=== PATIENT | female | born 1930 | race Caucasian/White ===

== ENCOUNTER 2017-01-29 19:20 | Observation (INO) | payer MEDICARE, OTHER, BC ==
[2017-01-29 20:07] LABS: Hematocrit 39.8 % (37.0-47.0); Hemoglobin 13.3 gm/dL (12.5-16.0); Mean Cell Volume 90.5 fl (78-100); Mean Corpuscular Hemoglobin 30.2 pg (27-31); Mean Corpuscular Hgb Conc 33.4 g/dl (32-36); Mean Platelet Volume 9.7 fl (6.0-9.5); Neutrophil # 3.5 K/mm3 (1.3-6.0); Neutrophil % 51.5 % (42-75.0); Platelet Count 187 K/mm3 (150-450); Red Cell Distribution Width 14.1 % (11.5-14.0); White Blood Count 6.7 K/mm3 (4.0-10.5)
--- NOTE | 2017-01-29 20:15 | ERNOTE ---
<Courtney Mahmood - Last Filed: 01/29/17 20:03> Dyspnea - General Presenting Symptoms: shortness of breath Time Seen by Provider: 01/29/17 19:46 Source: patient Exam Limitations: no limitations - Immun/Allergies/Home Medications Immunizations: IMMUNIZATION HX Immunizations Up to Date Yes History of Influenza Vaccine No Hx Pneumococcal Vaccination No Allergies/Adverse Reactions: Allergies imipramine Allergy (Verified 01/29/17 19:26) metformin Allergy (Verified 01/29/17 19:26) simvastatin [From Zocor] Allergy (Verified 01/29/17 19:26) Home Medications: HOME MEDICATIONS Albuterol Sulfate [Albuterol Sulfate 2.5 MG/0.5ML] 1 vial IH Q4H #30 vial [Last Taken Unknown] Ascorbic Acid [Vitamin C] 500 mg PO DAILY 08/18/15 [Last Taken Unknown] B2/Vits A,C,E/Lut/Zeaxanth/Min [Icaps Tablet] 1 each PO DAILY 08/18/15 [Last Taken Unknown] Carvedilol [Coreg] 3.125 mg PO BID 08/18/15 [Last Taken Unknown] Chlorthalidone [Hygroton] 12.5 mg PO DAILY 08/18/15 [Last Taken Unknown] Cholecalciferol [Vitamin D] 1,000 unit PO DAILY 08/18/15 [Last Taken Unknown] Cyanocobalamin (Vitamin B-12) [Vitamin B12] 500 mcg PO DAILY 08/18/15 [Last Taken Unknown] Diphenoxylate HCl/Atrop Sulf [Lomotil] 2.5 mg PO QID PRN #40 tab 08/18/15 [Last Taken Unknown] Doxycycline Hyclate [Vibratab] 100 mg PO BID #20 tab 08/18/15 [Last Taken Unknown] FLUoxetine HCL [Prozac] 40 mg PO DAILY 08/18/15 [Last Taken Unknown] Fish Oil/Borage/Flax/Om3,6,9#1 [[place] 3-6-9 1,200 mg Softgel] 1,200 mg PO BID [Last Taken Unknown] Insulin Glargine,Hum.rec.anlog [Lantus] 28 units SC DAILY 08/18/15 [Last Taken Unknown] Lisinopril [Prinivil] 20 mg PO HS 08/18/15 [Last Taken Unknown] Lutein Extract/Zeaxanthin Ext [Lutein 15 mg Softgel] 1 each PO DAILY 08/18/15 [ Last Taken Unknown] Ondansetron [Zofran Odt] 4 mg PO Q6H PRN #20 tab 08/18/15 [Last Taken Unknown] Oxybutynin Chloride [Ditropan] 5 mg PO BID 08/18/15 [Last Taken Unknown] Pravastatin Sodium [Pravachol] 80 mg PO DAILY 08/18/15 [Last Taken Unknown] Promethazine HCl/Codeine [Phenergan W/Codeine Syrup] 5 ml PO Q4H PRN #180 ml [Last Taken Unknown] amLODIPine BESYLATE [Norvasc] 10 mg PO DAILY 08/18/15 [Last Taken Unknown] - History of Present Illness Narrative: Patient had just finished a dinner of steak and hashbrowns at a restaurant when she started to feel flushed, short of breath and had chest pressure. the symptoms lasted about an hour and had resolved on arrival in the ER Date (Duration): 01/29/17 Time (Timing): 17:45 Treatment LEDGER CLERK: none Initiating event: Denies: upper resp illness, out of meds, sports/exercise, aspiration/choking Frequency of episodes: Denies: no prior episodes Modifying Factors (Worsens): Reports: nothing Associated Symptoms-Dyspnea: Reports: chest pain/discomfort. Denies: fever/ chills, cough, wheezing, dizziness, lightheadedness, weakness Prior Treatment: Denies: recently seen, currently on antibiotics, previous episodes Review of Systems - Review of Systems Constitutional: Absent: recent illness, fever, fussy EYE: Absent: vision changes ENT: Absent: nose congestion, sore throat Respiratory: Absent: shortness of breath Cardiology: Present: See HPI. Absent: palpitations, syncope Gastrointestinal/Abdominal: Absent: nausea, vomiting, abdominal pain Genitourinary: Present: no symptoms reported Musculoskeletal: Absent: back pain, neck pain Neurological: Absent: headache, weakness, numbness - Patient's Past Medical History Patient History - Medical: Diabetes Type 2 Insulin Dependent Patient History - Cardiac/Respiratory: COPD Patient History - Cancer: No Hx of Cancer Patient History - Surgical Procedures: Cholecystectomy, Hysterectomy Patient History - Other: None - Family History Father Family History - Medical: , Diabetes Type 2 Mother Family History - Medical: - Social History Living Situations: home Abuse History: No History of abuse Psych History: No pertinent hx Smoking Status: Former smoker Alcohol Use: none Drug Use: none - Immunizations Immunizations Up to Date: Yes Hx Pneumococcal Vaccination: No History of Influenza Vaccine: No Physical Exam - Physical Exam General Appearance: Present: wd/wn, alert Eye Exam: Normal inspection: bilateral Ears, Nose, Throat: Present: normal pharynx Respiratory: Present: no respiratory distress, no accessory muscle use, lungs clear, decreased breath sounds Cardiovascular/Chest: Present: regular rate, rhythm, no murmur Gastrointestinal/Abdominal: Present: normal bowel sounds, nontender, nondistended, soft Extremity Exam: Present: no edema Neurological Exam: Present: alert, oriented, normal mood/affect Skin Exam: Present: normal color, warm/dry ED Progress - Vital Signs Patient's Vital Signs:: I have reviewed the patient's vital signs. Vital Signs: Vital Signs 01/29/17 19:27 Temperature 37.6 C H Pulse Rate 108 H Respiratory 20 Rate Blood Pressure 196/94 O2 Sat by Pulse 96 Oximetry - EKG EKG: NSR - sinustachycardia, nonspecific ST T wave changes, unchanged from EKG read: Interp. by me - Progress/Reassessment Chief Complaint: Dyspnea - Transfer of Care Physician Sign Out: Courtney Mahmood Receiving Physician: Kiersten Kunz Pending Results: Labs Expected Disposition: Admit Departure Clinical Impression: Chest pain Qualifiers: Chest pain type: unspecified Qualified Code(s): R07.9 - Chest pain, unspecified - Departure Disposition: [facility] Condition: Stable Referrals: Monica Long MD [Primary Care Provider] - <Kiersten Kunz - Last Filed: 01/29/17 21:03> Dyspnea - Date Date of Service: 01/29/17 - Immun/Allergies/Home Medications Immunizations: IMMUNIZATION HX Immunizations Up to Date Yes History of Influenza Vaccine No Hx Pneumococcal Vaccination No ED Progress - Results and Orders Patient's Lab Results:: I have reviewed the patient's lab results. - Vital Signs Vital Signs: Vital Signs 01/29/17 01/29/17 01/29/17 19:27 20:07 20:50 Temperature 37.6 C H Pulse Rate 108 H 91 84 Respiratory 20 14 Rate Blood Pressure 196/94 155/70 O2 Sat by Pulse 96 94 Oximetry Plan - Plan Plan: This examiner started taking care of the patient after the patient had already been seen in evaluated examined and diagnosed with a previous provider. The story is of this patient went out to eat at about 1800 she started having substernal chest pains that radiated up into her substernal region. Upon arrival patient's EKG did not reveal any ST or T wave changes there is no STEMI. When I saw the patient the patient's chest pain was down from a 9 out of 10 to a 5 out of 10. At this time this examiner elected to give her 2 mg of morphine and an aspirin 324 mg chew and swallow. A set of enzymes are negative on this patient on interviewing her she appears comfortable however she still states she has a 5 out of 10 chest pressure in the substernal region. I believe this patient needs to be admitted to the MedSurg unit for observation and a second set of troponin and enzymes.
[2017-01-29 20:20] LABS: Prothrombin Time (Patient) 9.8 Seconds (9.0-11.0)
[2017-01-29 20:21] LABS: INR 0.98 INR (0.90-1.10); Partial Thrombolplastin Time 24.3 Seconds (24-32)
[2017-01-29 20:29] LABS: ALT 31 U/L (19-67); AST 23 U/L (0-48); Alkaline Phosphatase * 125 U/L (50-170); Anion Gap 11.3 mmol/L (6.8-13.8); BUN/Creatinine Ratio 15.5 (9.0-21.6); Bilirubin, Total 0.3 mg/dL (0.0-1.1); Blood Urea Nitrogen 18 mg/dL (3-23); Ca. Corrected For Albumin 10.6 mg/dL (8.4-10.2); Calcium * 10.9 mg/dL (7.9-10.9); Carbon Dioxide 30.7 mmol/L (24-32.6); Chloride 104 mmol/L (97-106); Glucose * 193 mg/dL (70-110); Sodium 142 mmol/L (132-142); Total Protein 7.4 gm/dL (6.2-8.2); Troponin I Less than 0.017 ng/ml (0.00-0.10)
[2017-01-29] MEDS ORDERED: MORPHINE SULFATE 2 MG/ML DISP.SYRIN IV ONE (20:54)
[2017-01-29] MEDS ORDERED: ASPIRIN 81 MG TAB.CHEW ONE ×2 (20:54→20:57)
[2017-01-29] MEDS ORDERED: ASPIRIN 81 MG TAB.CHEW PO ONE (20:54)
[2017-01-29] MEDS ORDERED: MORPHINE SULFATE 2 MG/ML DISP.SYRIN ONE (20:56)
--- NOTE | 2017-01-29 21:42 | HP ---
Chief Complaint - Chief Complaint Date of Service: 01/29/17 Time of Service: 20:30 Chief Complaint: "Chest pressure". Source of HPI- Pt; reliable, ERP report. History of Present Illness: Mrs. Welch is a 86-yr-old [place] pt with a PMH of: CKD, DM II, GERD, HTN, HLD, Macular degeneration, Osteoarthritis & RIZWANA.Pt states that she was out with her family at a local diner and after they were done eating and getting ready to leave, she suddenly developed pressure like pain on her chest. This was accompanied by feeling of Hotness and SOB. Her family brought her to the ED by personal car. She states that by the time she arrived here, the pain/pressure like discomfort was gone. She denies the associated symptoms of pain radiation to the neck, jaw or arm an no palpitations. There was no feeling of numbness on her hands & no difficulty of speech. At the ED, she received 3 Aspirins and morphine. During physical exam, she is completely pain free. There is no reproduction of pain on chest wall palpation. The first EKG and troponin were negative of ACS/[place]. She will be admitted under observation status for remote telemetry monitoring and repeat EKG & Troponin. - Patient's Past Medical History Patient History - Medical: Diabetes Type 2 Insulin Dependent, GERD, Osteoarthritis, Other - Macular degeneration. Patient History - Cardiac/Respiratory: COPD, Hypertension, Hyperlipidemia Patient History - Cancer: No Hx of Cancer Patient History - Surgical Procedures: Cholecystectomy, Hysterectomy Patient History - Other: None - Family History Father Family History - Medical: , Diabetes Type 2 Mother Family History - Medical: - Social History Living Situations: home Abuse History: No History of abuse Psych History: No pertinent hx Smoking Status: Former smoker Alcohol Use: none Drug Use: none - Immunizations Immunizations Up to Date: Yes Hx Pneumococcal Vaccination: No History of Influenza Vaccine: No Review Of Systems (GEN) - Review of Systems Generalized/Overall Review: Present: Diaphoresis. Absent: Weakness, Chills, Fever, Malaise EENTM: Absent: Eye Pain, Blurred Vision, Double Vision Respiratory: Absent: Cough, Shortness of Breath, Orthopnea Cardiac: Present: Other - chest pressure. Absent: Palpitations, Syncope Abdominal: Absent: Nausea, Vomiting, Hematemesis, Constipation Genitourinary: Absent: Burning, Itching, Urgency, Incontinent Musculoskeletal: Absent: Joint Pain, Back Pain, Joint Swelling Neurological: Absent: Headache, Anxiety, Depressed Skin: Absent: Dryness, Lesions, Lumps, Bruising Endocrine: Absent: Intolerance to Cold, Intolerance to Heat, Increased Thirst Misc: All systems neg except as marked Allergies/Adverse Reactions: Allergies Allergy/AdvReac Type Severity Reaction Status Date / Time imipramine Allergy Verified 01/29/17 19:26 metformin Allergy Verified 01/29/17 19:26 simvastatin [From Zocor] Allergy Verified 01/29/17 19:26 Home Medications: HOME MEDICATIONS Albuterol Sulfate [Albuterol Sulfate 2.5 MG/0.5ML] 1 vial IH Q4H #30 vial [Last Taken Unknown] Ascorbic Acid [Vitamin C] 500 mg PO DAILY 08/18/15 [Last Taken Unknown] B2/Vits A,C,E/Lut/Zeaxanth/Min [Icaps Tablet] 1 each PO DAILY 08/18/15 [Last Taken Unknown] Carvedilol [Coreg] 3.125 mg PO BID 08/18/15 [Last Taken Unknown] Chlorthalidone [Hygroton] 12.5 mg PO DAILY 08/18/15 [Last Taken Unknown] Cholecalciferol [Vitamin D] 1,000 unit PO DAILY 08/18/15 [Last Taken Unknown] Cyanocobalamin (Vitamin B-12) [Vitamin B12] 500 mcg PO DAILY 08/18/15 [Last Taken Unknown] Diphenoxylate HCl/Atrop Sulf [Lomotil] 2.5 mg PO QID PRN #40 tab 08/18/15 [Last Taken Unknown] Doxycycline Hyclate [Vibratab] 100 mg PO BID #20 tab 08/18/15 [Last Taken Unknown] FLUoxetine HCL [Prozac] 40 mg PO DAILY 08/18/15 [Last Taken Unknown] Fish Oil/Borage/Flax/Om3,6,9#1 [[place] 3-6-9 1,200 mg Softgel] 1,200 mg PO BID [Last Taken Unknown] Insulin Glargine,Hum.rec.anlog [Lantus] 28 units SC DAILY 08/18/15 [Last Taken Unknown] Lisinopril [Prinivil] 20 mg PO HS 08/18/15 [Last Taken Unknown] Lutein Extract/Zeaxanthin Ext [Lutein 15 mg Softgel] 1 each PO DAILY 08/18/15 [ Last Taken Unknown] Ondansetron [Zofran Odt] 4 mg PO Q6H PRN #20 tab 08/18/15 [Last Taken Unknown] Oxybutynin Chloride [Ditropan] 5 mg PO BID 08/18/15 [Last Taken Unknown] Pravastatin Sodium [Pravachol] 80 mg PO DAILY 08/18/15 [Last Taken Unknown] Promethazine HCl/Codeine [Phenergan W/Codeine Syrup] 5 ml PO Q4H PRN #180 ml [Last Taken Unknown] amLODIPine BESYLATE [Norvasc] 10 mg PO DAILY 08/18/15 [Last Taken Unknown] Exam - Exam Vital Signs: Vital Signs - Last Taken Temp 37.3 C 01/29/17 21:15 Pulse 84 01/29/17 21:15 Resp 13 01/29/17 21:15 BP 166/82 01/29/17 21:15 Pulse Ox 94 01/29/17 21:15 Constitutional: Present: Alert, Oriented x3, Cooperative, No distress ENT Exam: Present: normal ENT inspection, hearing grossly normal Eye Exam: bilateral eye: normal inspection, PERRL Neck: Present: non-tender, full range of motion, supple Back Exam: Present: normal inspection, no CVA tenderness Respiratory: Present: lungs clear, No rales, No wheezing Cardiovascular/Chest: Present: normal peripheral pulses, regular rate, rhythm, no chest tenderness, no edema, no murmur Abdomen: Present: Normal bowel sounds, soft, nontender /Rectal: Present: Exam deferred Extremity: Present: normal range of motion, non-tender, normal inspection Skin Exam: Present: warm/dry, no cyanosis Lymphatic: Present: no adenopathy Neurologic: Present: alert, normal mood/affect, oriented x 3 Appearance: Present: appropriate appearance, appropriate insight Eye contact: Present: cooperative, good eye contact, normal speech Thoughts: Present: normal thought pattern, no apparent hallucination Diagnostic Studies: Laboratory Results WBC 6.7 K/mm3 (4.0-10.5) 01/29/17 19:50 RBC 4.40 M/mm3 (4.2-5.4) 01/29/17 19:50 Hgb 13.3 gm/dL (12.5-16.0) 01/29/17 19:50 Hct 39.8 % (37.0-47.0) 01/29/17 19:50 MCV 90.5 fl (78-100) 01/29/17 19:50 MCH 30.2 pg (27-31) 01/29/17 19:50 MCHC 33.4 g/dl (32-36) 01/29/17 19:50 RDW 14.1 % (11.5-14.0) H 01/29/17 19:50 Plt Count 187 K/mm3 (150-450) 01/29/17 19:50 MPV 9.7 fl (6.0-9.5) H 01/29/17 19:50 Immature Gran % (Auto) 1.30 % (0.001-0.429) H 01/29/17 19:50 Immature Gran # (Auto) 0.09 K/mm3 (0.000-0.0310) H 01/29/17 19:50 Neutrophils % 51.5 % (42-75.0) 01/29/17 19:50 Lymphocytes % 36.1 % (20-51) 01/29/17 19:50 Monocytes % 8.6 % (0.0-9) 01/29/17 19:50 Eosinophils % 2.1 % (0.0-3.0) 01/29/17 19:50 Basophils % 0.4 % (0.0-1.0) 01/29/17 19:50 Nucleated RBC % 0.0 k/mm3 (0-1) 01/29/17 19:50 Neutrophils # 3.5 K/mm3 (1.3-6.0) 01/29/17 19:50 Lymphocytes # 2.4 k/mm3 (1.5-3.5) 01/29/17 19:50 Monocytes # 0.6 k/mm3 (0.0-1.0) 01/29/17 19:50 Eosinophils # 0.1 k/mm3 (0.0-0.7) 01/29/17 19:50 Absolute Basophils 0.0 k/mm3 (0.0-0.1) 01/29/17 19:50 PT 9.8 Seconds (9.0-11.0) 01/29/17 19:50 INR (Anticoag Therapy) 0.98 INR (0.90-1.10) 01/29/17 19:50 PTT ([place]) 24.3 Seconds (24-32) 01/29/17 19:50 Sodium 142 mmol/L (132-142) 01/29/17 19:50 Plasma Sodium 143 mmol/L (130-142) H 01/29/17 19:50 Potassium 4.0 mmol/L (3.4-4.6) 01/29/17 19:50 Chloride 104 mmol/L (97-106) 01/29/17 19:50 Carbon Dioxide 30.7 mmol/L (24-32.6) 01/29/17 19:50 Anion Gap 11.3 mmol/L (6.8-13.8) 01/29/17 19:50 BUN 18 mg/dL (3-23) 01/29/17 19:50 Creatinine 1.16 mg/dL (0.4-1.4) 01/29/17 19:50 Est GFR (Non-Af Amer) 47 mL/min (60-130) L 01/29/17 19:50 BUN/Creatinine Ratio 15.5 (9.0-21.6) 01/29/17 19:50 Random Glucose 193 mg/dL (70-110) H 01/29/17 19:50 Calcium 10.9 mg/dL (7.9-10.9) 01/29/17 19:50 Calcium Adj for Albumin 10.6 mg/dL (8.4-10.2) H 01/29/17 19:50 Total Bilirubin 0.3 mg/dL (0.0-1.1) 01/29/17 19:50 AST 23 U/L (0-48) 01/29/17 19:50 ALT 31 U/L (19-67) 01/29/17 19:50 Alkaline Phosphatase 125 U/L (50-170) 01/29/17 19:50 Troponin I Less than 0.017 ng/ml (0.00-0.10) 01/29/17 19:50 B-Natriuretic Peptide 186 pg/mL (5-550) 01/29/17 19:50 Total Protein 7.4 gm/dL (6.2-8.2) 01/29/17 19:50 Albumin 4.0 gm/dl (3.4-5.0) 01/29/17 19:50 Assessment/Plan - Assessment/Plan (1) Chest pain, rule out acute myocardial infarction Assessment: The first Troponin was negative and EKG did not have any ST-T wave changes. Will repeat serial Troponins and EKG and should they all be negative, will suspect that this episode was GI related. She has history of GERD and omeprazole 20mg daily. Consider adjusting Omeprazole to [address] her on continuous cardiac monitoring and keep NPO. Plan to DC tomorrow if no acute events overnight. Problem: Acute (2) COPD (chronic obstructive pulmonary disease) Problem: Chronic (3) Diabetes mellitus Problem: Chronic Qualifiers: Diabetes mellitus type: type 2 (4) GERD (gastroesophageal reflux disease) Problem: Chronic (5) Osteoarthritis Problem: Chronic (6) Obstructive sleep apnea Problem: Chronic
[2017-01-30] MEDS ORDERED: ACETAMINOPHEN 650 MG TABLET PO PRN (02:51)
[2017-01-30] MEDS: ALBUTEROL SULFATE 2.5 MG/0.5 ML VIAL.NEB IH SCH ×3 (03:28→11:17)
--- NOTE | 2017-01-30 05:15 | DS ---
(1) Chest pain, rule out acute myocardial infarction Problem: Acute (2) COPD (chronic obstructive pulmonary disease) Problem: Chronic (3) Diabetes mellitus Problem: Chronic Qualifiers: Diabetes mellitus type: type 2 (4) GERD (gastroesophageal reflux disease) Problem: Chronic (5) Osteoarthritis Problem: Chronic (6) Obstructive sleep apnea Problem: Chronic Description of Stay: Admission HPI. Mrs. Welch is a 86-yr-old [place] pt with a PMH of: CKD, DM II, GERD, HTN, HLD, Macular degeneration, Osteoarthritis & RIZWANA.Pt states that she was out with her family at a local diner and after they were done eating and getting ready to leave, she suddenly developed pressure like pain on her chest. This was accompanied by feeling of Hotness and SOB. Her family brought her to the ED by personal car. She states that by the time she arrived here, the pain/pressure like discomfort was gone. She denies the associated symptoms of pain radiation to the neck, jaw or arm an no palpitations.There was no feeling of numbness on her hands & no difficulty of speech. At the ED, she received 3 Aspirins and morphine. During physical exam, she is completely pain free.There is no reproduction of pain on chest wall palpation. The first EKG and troponin were negative of ACS/[place]. She will be admitted under observation status for remote telemetry monitoring and repeat EKG & Troponin. Hospital Problem/s 1.) Chest pain. Pt was admitted for an overnight stay and placed on cardiac telemetry monitoring and there were no arrhythmias noted. Serial troponins were trended and even though all were in NR, two subsequent sets increased to the upper range of the threshold. The pt remained asymtpomatic during the night. The serial EKG did not show any changes to suggest ACS/[place]. She will be discharged with the goal of performing a Nuc.pharmacological stress testing as the diagnosis of ischemic heart disease is uncertain and she has high risks due to: DM, HTN, Obesity. This can be done on an outpatient basis next week. She is in a stable condition to be discharged home. Procedures Performed: none Discharge Disposition: Home self care Disposition: Home self-care Condition: Good Discharge Diet: Consistent carbs, Low salt Referrals: Monica Long MD [Primary Care Provider] - Problem Oriented Discharge Instructions to Patient/Family: Indigestion, Easy-to -Read, Nonspecific Chest Pain, [id number] Additional Patient Instructions (free text): Follow-up with Dr. Long next week. Complete Home Medications List: Complete Home Medication List: Albuterol Sulfate [Albuterol Sulfate 2.5 MG/0.5ML] 1 vial IH Q4H #30 vial Ascorbic Acid [Vitamin C] 500 mg PO DAILY 08/18/15 B2/Vits A,C,E/Lut/Zeaxanth/Min [Icaps Tablet] 1 each PO DAILY 08/18/15 Carvedilol [Coreg] 3.125 mg PO BID 08/18/15 Chlorthalidone [Hygroton] 12.5 mg PO DAILY 08/18/15 Cholecalciferol [Vitamin D] 1,000 unit PO DAILY 08/18/15 Cyanocobalamin (Vitamin B-12) [Vitamin B12] 500 mcg PO DAILY 08/18/15 FLUoxetine HCL [Prozac] 40 mg PO DAILY 08/18/15 Fish Oil/Borage/Flax/Om3,6,9#1 [[place] 3-6-9 1,200 mg Softgel] 1,200 mg PO BID Insulin Glargine,Hum.rec.anlog [Lantus] 28 units SC DAILY 08/18/15 Lisinopril [Prinivil] 20 mg PO HS 08/18/15 Lutein Extract/Zeaxanthin Ext [Lutein 15 mg Softgel] 1 each PO DAILY 08/18/15 Pravastatin Sodium [Pravachol] 80 mg PO DAILY 08/18/15 amLODIPine BESYLATE [Norvasc] 7.5 mg PO DAILY 08/18/15 Acetaminophen [Tylenol Arthritis] 2 cap PO Q8H PRN 01/30/17 Cetirizine HCl 10 mg PO DAILY 01/30/17 Mupirocin 1 appl TP BID PRN 01/30/17 Myrbetriq 50 mg PO QDIPM 01/30/17 Omeprazole 20 mg PO AC 01/30/17 Probiotic 1 cap PO DAILY 01/30/17 Xiidra 1 drop EACHEYE BID 01/30/17 Amb Orders for Discharge: Nuc Pharmacological Stress Time Frame: 1 Week, Location: Determined By Patient
[2017-01-30] MEDS ORDERED: PANTOPRAZOLE SODIUM 20 MG TABLET.DR PO SCH (07:00)
[2017-01-30 08:45] VITALS: BP 168/70
[2017-01-30] MEDS ORDERED: BETA-CAROTENE(A) W-C , E/MIN 1 TAB TABLET PO SCH (09:00)
[2017-01-30] MEDS ORDERED: amLODIPine BESYLATE 5 MG TABLET PO SCH (09:00)
[2017-01-30] MEDS ORDERED: CYANOCOBALAMIN 1,000 MCG TABLET PO SCH (09:00)
[2017-01-30] MEDS ORDERED: INSULIN GLARGINE,HUM.REC.ANLOG 100 UNITS/ML VIAL SC SCH (09:00)
[2017-01-30] MEDS ORDERED: FLUoxetine HCL 20 MG CAPSULE PO SCH (09:00)
[2017-01-30] MEDS ORDERED: OMEGA-3 FATTY ACIDS 1 CAP CAPSULE PO SCH (09:00)
[2017-01-30] MEDS ORDERED: CHLORTHALIDONE 25 MG TABLET PO SCH (09:00)
[2017-01-30] MEDS ORDERED: ASCORBIC ACID 500 MG TABLET PO SCH (09:00)
[2017-01-30] MEDS ORDERED: LORATADINE 10 MG TABLET PO SCH (09:00)
[2017-01-30] MEDS ORDERED: ROSUVASTATIN CALCIUM 10 MG TABLET PO SCH (09:00)
[2017-01-30] MEDS ORDERED: CARVEDILOL 3.125 MG TABLET PO SCH (09:00)
[2017-01-30] MEDS ORDERED: CHOLECALCIFEROL 1,000 UNIT CAPSULE PO SCH (09:00)
[2017-01-30] MEDS ORDERED: FLU VACC QS2017-18(6MOS UP)/PF 60 MCG/0.5 ML SYRINGE IM ONE (09:00)
[2017-01-30] MEDS ORDERED: LISINOPRIL 20 MG TABLET PO SCH (21:00)
== END 2017-01-30 12:53 | disposition home or self-care (01) ==
LOC: ER 19:20 → MS 21:10
PROVIDERS: ADMIT Nurse Practitioner; ATTEND Internal Medicine
DX: R07.2 Precordial pain (principal); J44.9 Chronic obstructive pulmonary disease, unspecified; Z87.891 Personal history of nicotine dependence; E11.9 Type 2 diabetes mellitus without complications; G47.33 Obstructive sleep apnea (adult) (pediatric); M19.90 Unspecified osteoarthritis, unspecified site; Z23 Encounter for immunization
CPT/HCPCS: 36415; 71020; 80053; 83880; 84484; 85025; 85610; 85730; 90471; 90686; 93005; 94640; 94660; 96372; 96374; 99284; G0378